=== PATIENT | female | born 1990 | race Caucasian/White ===

== ENCOUNTER 2018-07-29 12:21 | Emergency (ER) | payer OTHER ==
[~2018-07-29] VITALS: Ht 165.1 cm; Wt 63.0 kg
[2018-07-29] MEDS ORDERED: KETOROLAC 30MG/ML VIAL IV STA (12:41)
[2018-07-29] MEDS ORDERED: MORPHINE SULFATE 4 MG/ML CPJ (NOT FOR IM USE) IV STA (12:41)
[2018-07-29] MEDS ORDERED: SODIUM CHLORIDE 0.9% 1,000 ML IV ONE (12:41)
[2018-07-29] MEDS ORDERED: ONDANSETRON HCL 4MG/2ML INJ IV STA (12:41)
[2018-07-29] MEDS ORDERED: LORAZEPAM 1MG TABLET PO ONE (13:15)
[2018-07-29 13:18] LABS: BASOPHILS % 0.3 % (0.0-2.0); HEMATOCRIT. 38.9 % (36.0-48.0); HEMOGLOBIN. 13.9 g/dL (12.0-16.0); LYMPHOCYTES % 13.8 % (20.0-50.0); MEAN CORPUSCULAR HEMOGLOBIN 31.9 pg (28.0-32.0); MEAN CORPUSCULAR VOLUME 89.6 fL (81.0-99.0); MEAN PLATELET VOLUME 7.9 fl (7.4-10.4); MONOCYTES % 8.9 % (2.0-8.0); PLATELET 352 x1000/uL (130-400); RED BLOOD CELL COUNT 4.34 mill/uL (4.2-5.4); RED CELL DISTRIBUTION WIDTH 12.9 % (11.6-14.6)
[2018-07-29 13:23] LABS: CHLORIDE 107 mEq/L (98-107)
[2018-07-29 13:25] LABS: INR 1.1; PARTIAL THROMBOPLASTIN TIME 29.1 sec (23.4-31.0); PROTHROMBIN TIME 11.4 sec (9.6-11.0)
[2018-07-29 13:27] LABS: ETHANOL BLOOD < 10 mg/dL
[2018-07-29 13:39] LABS: HCG SCREEN NEGATIVE
[2018-07-29 15:00] LABS: CLARITY URINE CLEAR (CLEAR); COLOR URINE YELLOW (YELLOW); KETONES URINE 1+ (NEGATIVE); LEUKOCYTE ESTERASE URINE NEGATIVE (NEGATIVE); NITRITE URINE NEGATIVE (NEGATIVE); OCCULT BLOOD URINE 2+ (NEGATIVE); PROTEIN URINE NEGATIVE (NEGATIVE); SPECIFIC GRAVITY URINE 1.013 (1.005-1.030); UROBILINOGEN URINE 0.2 E.U./dL (0.2-1.0)
[2018-07-29 15:46] LABS: *AMPHETAMINES SCREEN URINE NEGATIVE (NEGATIVE); *BARBITURATES SCREEN URINE NEGATIVE (NEGATIVE); *BENZODIAZEPINES SCREEN URINE NEGATIVE (NEGATIVE); *COCAINE SCREEN URINE NEGATIVE (NEGATIVE); METHADONE URINE SCREEN NEGATIVE (NEGATIVE)
[2018-07-29 15:48] LABS: CANNABINOID URINE SCREEN NEGATIVE (NEGATIVE); OPIATES URINE SCREEN NEGATIVE (NEGATIVE); PHENCYCLIDINE URINE SCREEN NEGATIVE (NEGATIVE)
[2018-07-29] MEDS ORDERED: DEXT 5%/0.45% NACL KCL 20MEQ/L 1,000 ML IV ONE (16:11)
[2018-07-29] MEDS ORDERED: ONDANSETRON HCL 4MG/2ML INJ ONE (19:13)
[2018-07-29] MEDS: OLANZAPINE 10MG TABLET PO SCH (23:26)
[2018-07-30] MEDS ORDERED: LORAZEPAM 1MG TABLET PO ONE (08:30)
[2018-07-30] MEDS: OLANZAPINE 10MG TABLET PO SCH (08:37)
[2018-07-30 08:45] VITALS: BP 124/79
== END 2018-07-30 08:50 | disposition home or self-care (01) ==
LOC: ER 12:21
DX: R44.0 Auditory hallucinations (principal); E86.0 Dehydration; R51 Headache; J45.909 Unspecified asthma, uncomplicated; Z88.1 Allergy status to other antibiotic agents; Z88.5 Allergy status to narcotic agent; Z88.6 Allergy status to analgesic agent
CPT/HCPCS: 36415; 70450; 80053; 80305; 80307; 80320; 80329; 81003; 81025; 83880; 84703; 85025; 85610; 85730; 96360; 96361; 99284; J2405; J7030; Z7610; G0480